=== PATIENT | female | born 1950 | race Caucasian/White ===

== ENCOUNTER 2018-10-10 15:16 | Emergency (ER) | payer OTHER ==
[~2018-10-10] VITALS: Ht 162.6 cm; Wt 73.9 kg
[~2018-10-10 15:16] MED LIST: ASPIR 8181 MG; SULFAMETHOXAZOL1 TA6 PO
== END 2018-10-10 18:39 | disposition home or self-care (01) ==
LOC: ER 15:16
DX: J11.1 Influenza due to unidentified influenza virus with other respiratory manifestations (principal)

== ENCOUNTER 2021-03-10 09:04 | Inpatient (IN) | payer OTHER ==
[~2021-03-10] VITALS: Ht 162.6 cm; Wt 78.5 kg
[2021-03-12] MEDS ORDERED: CYCLOBENZAPRINE5 MG (14:34)
[2021-03-15] MEDS ORDERED: AZELASTINE137 MCG/0. (09:37)
[2021-03-26] MEDS ORDERED: CIPRO500 MG PO (13:30)
[2021-03-26] MEDS ORDERED: FLAGYL500MG PO (13:32)
== END 2021-03-26 16:25 | disposition home or self-care (01) | DRG 392 ==
LOC: ER 09:04 → SURH 20:11 → ER 03-11 02:11 → SURH 03-26 16:25
PROVIDERS: ADMIT Surgery; ATTEND Surgery
PROC: 02HV33Z Insertion of Infusion Device into Superior Vena Cava, Percutaneous Approach (ICD-10-PCS; 2021-03-11)
PROC: 0W9J30Z Drainage of Pelvic Cavity with Drainage Device, Percutaneous Approach (ICD-10-PCS; principal; 2021-03-16)
DX: K57.20 Diverticulitis of large intestine with perforation and abscess without bleeding (principal); E87.6 Hypokalemia; E03.8 Other specified hypothyroidism; Z20.822 Contact with and (suspected) exposure to COVID-19

== ENCOUNTER 2021-05-12 06:31 | Day surgery (SDC) | payer OTHER ==
[~2021-05-12 06:31] MED LIST changes: +AZELASTINE137 MCG/0.; +CIPRO500 MG PO; +CYCLOBENZAPRINE5 MG; +FLAGYL500MG PO
== END 2021-05-12 12:35 | disposition home or self-care (01) ==
LOC: AMB-ENDOS 06:31
PROVIDERS: ATTEND Surgery
DX: D12.3 Benign neoplasm of transverse colon (principal); K64.8 Other hemorrhoids

== ENCOUNTER 2022-10-25 14:40 | Emergency (ER) | payer OTHER ==
[~2022-10-25] VITALS: Ht 162.6 cm; Wt 73.5 kg
== END 2022-10-25 17:09 | disposition home or self-care (01) ==
LOC: ER 14:40
DX: M79.604 Pain in right leg (principal); Z88.0 Allergy status to penicillin

== ENCOUNTER 2022-10-26 08:45 | Emergency (ER) | payer OTHER ==
[~2022-10-26] VITALS: Ht 162.6 cm; Wt 74.8 kg
== END 2022-10-26 11:15 | disposition home or self-care (01) ==
LOC: ER 08:45
DX: M79.651 Pain in right thigh (principal); Z88.0 Allergy status to penicillin

== ENCOUNTER → 2022-12-04 | Emergency (ER) | payer OTHER ==
[~2022-12-04] VITALS: Ht 162.6 cm; Wt 74.8 kg
== END | disposition left against medical advice (07) ==
LOC: ER 17:26
DX: Z53.21 Procedure and treatment not carried out due to patient leaving prior to being seen by health care provider (principal)

== ENCOUNTER 2023-06-27 14:10 | Emergency (ER) | payer OTHER ==
[~2023-06-27] VITALS: Ht 165.1 cm; Wt 77.1 kg
[2023-06-27] MEDS ORDERED: PEPCID AC20 MG PO (18:20)
[2023-06-27] MEDS ORDERED: DICLOFENAC SODI50 MG PO (18:20)
== END 2023-06-27 18:49 | disposition home or self-care (01) ==
LOC: ER 14:11
DX: S80.02XA Contusion of left knee, initial encounter (principal); X58.XXXA Exposure to other specified factors, initial encounter; Y93.89 Activity, other specified; Y92.89 Other specified places as the place of occurrence of the external cause; Y99.9 Unspecified external cause status; Z88.0 Allergy status to penicillin; Z85.89 Personal history of malignant neoplasm of other organs and systems
CPT/HCPCS: 73560; 96372; 99284; J1100; J1885

== ENCOUNTER 2023-09-24 09:29 | Emergency (ER) | payer OTHER ==
[~2023-09-24] VITALS: Ht 162.6 cm; Wt 77.1 kg
[~2023-09-24 09:29] MED LIST changes: +DICLOFENAC SODI50 MG PO; +PEPCID AC20 MG PO
[2023-09-24] MEDS ORDERED: XYZAL2.5 MG/5 M PO (09:59)
[2023-09-24 11:03] LABS: HEMATOCRIT 39.6 % (36.0-45.00); HEMOGLOBIN 13.6 g/dL (12.0-15.00); MEAN CELL VOLUME 88.4 fL (80.00-100.00); MEAN CORPUSCULAR HEMOGLOBIN 30.4 pg (27.00-32.0); MEAN CORPUSCULAR HGB CONC 34.4 g/dl (32.0-36.0); PLATELET COUNT 289 K/uL (150-450); RED BLOOD COUNT 4.48 M/uL (4.00-6.00); RED CELL DISTRIBUTION WIDTH 12.8 % (11.5-14.5)
== END 2023-09-24 12:16 | disposition home or self-care (01) ==
LOC: ER 09:30
DX: J06.9 Acute upper respiratory infection, unspecified (principal); Z88.0 Allergy status to penicillin; I10 Essential (primary) hypertension; Z20.822 Contact with and (suspected) exposure to COVID-19; Z88.6 Allergy status to analgesic agent

== ENCOUNTER 2024-09-01 06:57 | Emergency (ER) | payer OTHER ==
[~2024-09-01] VITALS: Ht 152.4 cm; Wt 81.2 kg
[~2024-09-01 06:57] MED LIST changes: +XYZAL2.5 MG/5 M PO
[2024-09-01] MEDS ORDERED: ASPIRIN 325 MG TABLET PO ONE (08:15)
[2024-09-01 08:56] LABS: HEMATOCRIT 42.8 % (36.0-45.00); HEMOGLOBIN 14.9 g/dL (12.0-15.00); MEAN CELL VOLUME 86.7 fL (80.00-100.00); MEAN CORPUSCULAR HEMOGLOBIN 30.2 pg (27.00-32.0); MEAN CORPUSCULAR HGB CONC 34.8 g/dl (32.0-36.0); PLATELET COUNT 274 K/uL (150-450); RED BLOOD COUNT 4.93 M/uL (4.00-6.00); RED CELL DISTRIBUTION WIDTH 13.2 % (11.5-14.5)
[2024-09-01 09:26] LABS: PH,URINE 5.5 (5.0-8.0); URINE APPEARANCE Clear; URINE BILIRRUBIN Negative (NEGATIVE); URINE BLOOD NHT; URINE COLOR Yellow; URINE GLUCOSE Negative (NEGATIVE); URINE KETONE Negative (NEGATIVE); URINE LEUKOCYTE Negative; URINE NITRATE Negative; URINE PROTEIN Negative (NEGATIVE); URINE UROBILINOGEN 0.2 E.U./dl
[2024-09-01 09:27] LABS: URINE RBC 6.6 uL (0.0-20.8); URINE WBC 16.1 uL (0.0-23.2)
[2024-09-01 09:36] LABS: ALBUMIN 3.9 gm/dL (3.4-5.0); BILIRUBIN TOTAL 0.9 mg/dL (0.3-1.2); CALCIUM 9.8 mg/dL (8.5-10.1); CREATININE SERUM 0.6 mg/dL (0.55-1.02); GFR 98.55; GLOBULINA 3.4 G/DL (2.4-3.5); POTASSIUM 4.27 mEq/L (3.5-5.1); TOTAL PROTEIN 7.3 gm/dL (6.4-8.2)
== END 2024-09-01 14:30 | disposition home or self-care (01) ==
LOC: ER 06:59
PROVIDERS: Emergency Medicine
DX: R07.89 Other chest pain (principal); Z88.0 Allergy status to penicillin; I10 Essential (primary) hypertension; Z85.42 Personal history of malignant neoplasm of other parts of uterus; K57.30 Diverticulosis of large intestine without perforation or abscess without bleeding

== ENCOUNTER 2025-02-04 16:16 | Inpatient (IN) | payer OTHER ==
[~2025-02-04] VITALS: Ht 162.6 cm; Wt 77.1 kg
--- NOTE | 2025-02-04 16:25 | NUR ---
PTE ALERTA Y ORIENTADA X3, REFIERE DOLOR EN FLANCO DERECHO DESDE ESTA MANANA. REFIERE PADECER DE DIVERTICULITIS Y SER PTE DEL DR.LUIS PINTO.
[2025-02-04] MEDS ORDERED: 0.9 % SODIUM CHLORIDE 1,000 ML IV STA (17:57)
[2025-02-04] MEDS ORDERED: MORPHINE SULFATE 4 MG/ML VIAL IV STA (17:59)
[2025-02-04] MEDS ORDERED: FAMOTIDINE/PF 20 MG IV STA (18:01)
[2025-02-04] MEDS ORDERED: CIPROFLOXACIN IN 5 % DEXTROSE 400 MG/200 ML PIGGYBAG IV STA (18:02)
[2025-02-04] MEDS ORDERED: METRONIDAZOLE/SODIUM CHLORIDE 500 MG/100 ML PIGGYBACK IV STA (18:03)
[2025-02-04] MEDS ORDERED: FAMOTIDINE/PF 20 MG/2 ML VIAL ONE (18:16)
[2025-02-04] MEDS ORDERED: METRONIDAZOLE/SODIUM CHLORIDE 500 MG/100 ML PIGGYBACK IV ONE (18:16)
[2025-02-04] MEDS ORDERED: CIPROFLOXACIN IN 5 % DEXTROSE 400 MG/200 ML PIGGYBAG IV ONE (18:16)
[2025-02-04 18:39] LABS: BASO % 0.6 % (0.1-1.2); EOS # 0.06 (0.04-0.54); EOS % 0.8 % (0.7-7.0); LYMPH # 1.57 (1.18-3.74); LYMPH % 21.9 % (19.3-53.1); MEAN PLATELET VOLUME 11.10 fl (9.4-12.4); MONO # 0.49 (0.24-0.82); MONO % 6.8 % (4.7-12.5); NEUT # 5.00 (1.56-6.13); NEUT % 69.8 % (34.0-71.1); RED CELL DISTRIBUTION WIDTH 12.5 % (11.6-14.4)
--- NOTE | 2025-02-04 18:53 | NUR ---
SE ORIENTA PTE SOBRE TX MEDICO EL CUAL REFIERE ENTENDER.SE LE EXTRAEN MUESTRAS BAJO MEDIDAS ASEPTICAS,SE CANALIZA Y SE ADMINISTRAN MEDICAMENTOS.SE ORIENTA SOBRE CT PENDIENTE Y REHUSA EL MISMO YA REFIERE NO SE SIENTE BIENN LUEGO DEL IV.PTE POCO COOPERADORA.
[2025-02-04 19:00] LABS: INR 1.02
[2025-02-04 19:06] LABS: ALT/SGPT 25.0 U/L (12-78); AST/SGOT 16.0 U/L (15-37); BILIRUBIN TOTAL 1.2 mg/dL (0.3-1.2); BUN CREA RATIO 30.0 (7.0-25.0); CREATININE SERUM 0.67 mg/dL (0.55-1.02); GFR 86.52; GLOBULINA 3.7 G/DL (2.4-3.5); GLUCOSE FASTING 106.0 mg/dL (65-100); OSMOLALITY SERUM 288.0 MOSM/KG (275-295)
[2025-02-04 19:11] LABS: URINE APPEARANCE Clear; URINE BILIRRUBIN Negative (NEGATIVE); URINE BLOOD Negative; URINE COLOR Yellow; URINE GLUCOSE Negative (NEGATIVE); URINE KETONE Trace (NEGATIVE); URINE LEUKOCYTE Trace; URINE NITRATE Negative; URINE PROTEIN Negative (NEGATIVE); URINE UROBILINOGEN 0.2 E.U./dl
[2025-02-04 19:15] LABS: URINE BACTERIA 235.2 uL (0.0-1933); URINE EPITHELIAL CELLS 14.1 uL (0.0-38.8); URINE RBC 12.6 uL (0.0-20.8); URINE WBC 12.4 uL (0.0-23.2)
[2025-02-04 19:18] LABS: URINE CAST 0.00 uL (0.0-1.40)
[2025-02-04] MEDS ORDERED: FAMOTIDINE/PF 20 MG/2 ML VIAL IV PUSH ONE (19:30)
[2025-02-04] MEDS ORDERED: 0.9 % SODIUM CHLORIDE 1,000 ML IV SCH (23:30)
[2025-02-04] MEDS ORDERED: ONDANSETRON HCL 2 MG/ML VIAL ONE (23:31)
[2025-02-04] MEDS ORDERED: ONDANSETRON HCL 2 MG/ML VIAL IV STA (23:37)
[2025-02-04] MEDS ORDERED: ONDANSETRON HCL 4 MG in 0.9 % SODIUM CHLORIDE 50 ML IV PRN (23:45)
[2025-02-04] MEDS ORDERED: KETOROLAC TROMETHAMINE 15 MG VIAL IU ONE (23:45)
[2025-02-04] MEDS ORDERED: MORPHINE SULFATE 4 MG/ML CARTRIDGE IV PRN (23:45)
[2025-02-05 03:27] LABS: INR 1.08
[2025-02-05 08:24] LABS: BASO % 0.5 % (0.1-1.2); EOS # 0.00 (0.04-0.54); EOS % 0.0 % (0.7-7.0); LYMPH # 0.82 (1.18-3.74); LYMPH % 10.0 % (19.3-53.1); MEAN PLATELET VOLUME 10.90 fl (9.4-12.4); MONO # 0.49 (0.24-0.82); MONO % 6.0 % (4.7-12.5); NEUT # 6.83 (1.56-6.13); NEUT % 83.1 % (34.0-71.1); RED CELL DISTRIBUTION WIDTH 12.7 % (11.6-14.4)
[2025-02-05 08:41] VITALS: BP 160/84; O2SAT 98
[2025-02-05 08:53] LABS: BUN CREA RATIO 27.0 (7.0-25.0); CREATININE SERUM 0.55 mg/dL (0.55-1.02); GFR 108.65; GLUCOSE FASTING 127.0 mg/dL (65-100); OSMOLALITY SERUM 287.0 MOSM/KG (275-295)
[2025-02-05] MEDS ORDERED: CIPROFLOXACIN IN 5 % DEXTROSE 200 ML IV SCH (09:00)
[2025-02-05] MEDS ORDERED: FAMOTIDINE/PF 20 MG in 0.9 % SODIUM CHLORIDE 8 ML IV PUSH SCH (09:00)
[2025-02-05] MEDS ORDERED: ONDANSETRON HCL 2 MG/ML VIAL ONE (11:03)
[2025-02-05 14:00] VITALS: O2SAT 95
[2025-02-05 16:21] VITALS: BP 169/82; O2SAT 94
[2025-02-05 16:56] VITALS: O2SAT 90
[2025-02-05 20:25] VITALS: O2SAT 90
[2025-02-06] VITALS (9 sets, daily range): BP systolic 142–182; BP diastolic 76–101; O2SAT 90–97
[2025-02-06] MEDS ORDERED: PANTOPRAZOLE SODIUM 40 MG in 0.9 % SODIUM CHLORIDE 8 ML IV PUSH SCH (09:00)
[2025-02-06] MEDS ORDERED: ENOXAPARIN SODIUM 40 MG/0.4 ML SYRINGE SUBCUTANEO SCH (09:00)
[2025-02-06] MEDS ORDERED: FAMOTIDINE/PF 20 MG in 0.9 % SODIUM CHLORIDE 8 ML IV PUSH SCH (17:00)
[2025-02-06] MEDS ORDERED: POTASSIUM CHLORIDE/D5-0.9%NACL 1,000 ML IV SCH (17:00)
[2025-02-06] MEDS ORDERED: hydrALAZINE HCL 20 MG VIAL IV PRN (19:30)
[2025-02-07] VITALS: O2SAT 91
[2025-02-07 00:49] VITALS: BP 132/79; O2SAT 97
[2025-02-07 04:00] VITALS: O2SAT 93
[2025-02-07 08:24] VITALS: BP 141/85; O2SAT 96
[2025-02-07] MEDS ORDERED: MORPHINE SULFATE 4 MG/ML CARTRIDGE IV PRN (08:45)
[2025-02-07 10:30] VITALS: O2SAT 95
[2025-02-07 11:25] LABS: BASO % 0.2 % (0.1-1.2); EOS # 0.00 (0.04-0.54); EOS % 0.0 % (0.7-7.0); LYMPH # 0.65 (1.18-3.74); LYMPH % 4.1 % (19.3-53.1); MEAN PLATELET VOLUME 11.20 fl (9.4-12.4); MONO # 1.76 (0.24-0.82); MONO % 11.1 % (4.7-12.5); NEUT # 13.31 (1.56-6.13); NEUT % 84.1 % (34.0-71.1); RED CELL DISTRIBUTION WIDTH 13.2 % (11.6-14.4)
[2025-02-07] MEDS ORDERED: LIDOCAINE HCL 1%/EPINEPHRINE 20ML VIAL IJ ONE (12:00)
[2025-02-07] MEDS ORDERED: BUPIVACAINE HCL/MPF 0.5% 30ML VIAL ONE (12:00)
[2025-02-07 12:08] LABS: ALT/SGPT 16.0 U/L (12-78); AST/SGOT 11.0 U/L (15-37); BILIRUBIN TOTAL 1.85 mg/dL (0.3-1.2); BUN CREA RATIO 38.0 (7.0-25.0); CREATININE SERUM 0.64 mg/dL (0.55-1.02); GFR 91.22; GLOBULINA 2.9 G/DL (2.4-3.5); GLUCOSE FASTING 149.0 mg/dL (65-100); OSMOLALITY SERUM 292.0 MOSM/KG (275-295)
[2025-02-07] MEDS ORDERED: SUGAMMADEX SODIUM 200 MG/2 ML VIAL IV ONE (14:35)
[2025-02-07] MEDS ORDERED: MORPHINE SULFATE 4 MG/ML VIAL IV ONE ×2 (16:05→16:35)
[2025-02-07] MEDS ORDERED: FAMOTIDINE/PF 20 MG/2 ML VIAL ONE (17:26)
[2025-02-07] MEDS ORDERED: METRONIDAZOLE/SODIUM CHLORIDE 500 MG/100 ML PIGGYBACK IV ONE (17:26)
[2025-02-07] MEDS ORDERED: hydrALAZINE HCL 20 MG VIAL ONE (17:32)
[2025-02-07] MEDS ORDERED: MEROPENEM 500 MG/VIAL VIAL IV SCH (18:00)
[2025-02-07 19:33] VITALS: BP 124/74; O2SAT 96
[2025-02-07] MEDS ORDERED: METOCLOPRAMIDE HCL 5 MG/ML VIAL IV SCH (21:00)
[2025-02-08] VITALS (8 sets, daily range): BP systolic 139–176; BP diastolic 81–84; O2SAT 90–94
[2025-02-08] MEDS ORDERED: POTASSIUM CHLORIDE/D5-0.45NACL 1,000 ML IV SCH (16:00)
[2025-02-09] VITALS (9 sets, daily range): BP systolic 139–150; BP diastolic 73–84; O2SAT 89–97
[2025-02-09 10:31] LABS: BASO % 0.5 % (0.1-1.2); EOS # 0.07 (0.04-0.54); EOS % 1.1 % (0.7-7.0); LYMPH # 0.61 (1.18-3.74); LYMPH % 9.4 % (19.3-53.1); MEAN PLATELET VOLUME 11.50 fl (9.4-12.4); MONO # 1.07 (0.24-0.82); NEUT # 4.69 (1.56-6.13); NEUT % 72.0 % (34.0-71.1); RED CELL DISTRIBUTION WIDTH 13.3 % (11.6-14.4)
[2025-02-09 10:33] LABS: MONO % 16.4 % (4.7-12.5)
[2025-02-09 10:58] LABS: BUN CREA RATIO 54.0 (7.0-25.0); CREATININE SERUM 0.41 mg/dL (0.55-1.02); GFR 152.49; GLUCOSE FASTING 133.0 mg/dL (65-100); OSMOLALITY SERUM 294.0 MOSM/KG (275-295)
[2025-02-09] MEDS ORDERED: MORPHINE SULFATE 4 MG/ML CARTRIDGE IV PRN (13:45)
[2025-02-09 14:28] LABS: BUN CREA RATIO 48.0 (7.0-25.0); CHOL HDL RATIO 2.3 (0-5.0); CREATININE SERUM 0.4 mg/dL (0.55-1.02); GFR 156.9; GLUCOSE FASTING 132.0 mg/dL (65-100); HDL 43.0 mg/dl (40-60); LDL 39.0 mg/dl (0-130); OSMOLALITY SERUM 295.0 MOSM/KG (275-295); VLDL 18.0 (0-39)
[2025-02-09] MEDS ORDERED: AA 4.25%/CAL/LYTES/DEXT 5% 1,000 ML PERIFERAL SCH (17:00)
[2025-02-10] VITALS (8 sets, daily range): BP systolic 144–160; BP diastolic 76–77; O2SAT 90–97
[2025-02-10 08:42] LABS: BASO % 0.5 % (0.1-1.2); EOS # 0.22 (0.04-0.54); EOS % 3.5 % (0.7-7.0); LYMPH # 1.06 (1.18-3.74); LYMPH % 16.9 % (19.3-53.1); MEAN PLATELET VOLUME 10.90 fl (9.4-12.4); MONO # 0.84 (0.24-0.82); NEUT # 4.09 (1.56-6.13); NEUT % 64.9 % (34.0-71.1); RED CELL DISTRIBUTION WIDTH 13.1 % (11.6-14.4)
[2025-02-10 09:11] LABS: INR 1.05
[2025-02-10 09:14] LABS: MONO % 13.4 % (4.7-12.5)
[2025-02-10 09:17] LABS: ALT/SGPT 16.0 U/L (12-78); AST/SGOT 13.0 U/L (15-37); BILIRUBIN TOTAL 0.76 mg/dL (0.3-1.2); BILIRUBIN,CONJUGATED 0.2 mg/dL (0.0-0.2); BUN CREA RATIO 44.0 (7.0-25.0); CHOL HDL RATIO 2.4 (0-5.0); CREATININE SERUM 0.39 mg/dL (0.55-1.02); GFR 161.55; GLOBULINA 2.6 G/DL (2.4-3.5); GLUCOSE FASTING 141.0 mg/dL (65-100); HDL 41.0 mg/dl (40-60); LDL 40.0 mg/dl (0-130); OSMOLALITY SERUM 291.0 MOSM/KG (275-295); VLDL 15.0 (0-39)
[2025-02-10] MEDS ORDERED: SUGAMMADEX SODIUM 200 MG/2 ML VIAL IV ONE (14:00)
[2025-02-11 01:34] VITALS: O2SAT 90
[2025-02-11 01:38] VITALS: BP 160/84; O2SAT 96
[2025-02-11 05:42] VITALS: O2SAT 90
[2025-02-11 08:27] VITALS: BP 166/89; O2SAT 92
[2025-02-11 16:51] VITALS: BP 164/84; O2SAT 91
[2025-02-11] MEDS ORDERED: MORPHINE SULFATE 4 MG/ML CARTRIDGE IV PRN (21:15)
[2025-02-12 01:50] VITALS: BP 153/66; O2SAT 91
[2025-02-12] MEDS ORDERED: DIATRIZOATE MEGLUMINE, SODIUM 30 ML BOTTLE PO NR (08:15)
[2025-02-12 08:51] VITALS: BP 134/64; O2SAT 99
[2025-02-12 10:31] LABS: ALT/SGPT 31.0 U/L (12-78); AST/SGOT 44.0 U/L (15-37); BILIRUBIN TOTAL 0.94 mg/dL (0.3-1.2); BUN CREA RATIO 33.0 (7.0-25.0); CREATININE SERUM 0.46 mg/dL (0.55-1.02); GFR 133.53; GLOBULINA 2.7 G/DL (2.4-3.5); GLUCOSE FASTING 114.0 mg/dL (65-100); OSMOLALITY SERUM 283.0 MOSM/KG (275-295)
[2025-02-12 11:37] LABS: BASO % 0.6 % (0.1-1.2); EOS # 0.16 (0.04-0.54); EOS % 2.4 % (0.7-7.0); LYMPH # 1.05 (1.18-3.74); LYMPH % 16.0 % (19.3-53.1); MEAN PLATELET VOLUME 10.90 fl (9.4-12.4); MONO # 0.76 (0.24-0.82); MONO % 11.6 % (4.7-12.5); NEUT # 4.43 (1.56-6.13); NEUT % 67.4 % (34.0-71.1); RED CELL DISTRIBUTION WIDTH 12.5 % (11.6-14.4)
[2025-02-12] MEDS ORDERED: POTASSIUM CHLORIDE-0.45% NACL 1,000 ML IV ONE (16:00)
[2025-02-12] MEDS ORDERED: POTASSIUM CHLORIDE-0.45% NACL 1,000 ML IV NR (16:15)
[2025-02-12 17:28] VITALS: BP 160/85; O2SAT 96
[2025-02-12] MEDS ORDERED: LACTOBACILLUS ACIDOPHILUS 1 CAP CAP PO SCH (22:31)
[2025-02-13 02:34] VITALS: BP 158/79; O2SAT 93
[2025-02-13 08:02] VITALS: BP 163/81
[2025-02-13 11:02] LABS: BUN CREA RATIO 23.0 (7.0-25.0); CREATININE SERUM 0.53 mg/dL (0.55-1.02); GFR 113.39; GLUCOSE FASTING 171.0 mg/dL (65-100); OSMOLALITY SERUM 285.0 MOSM/KG (275-295)
[2025-02-13] MEDS ORDERED: POTASSIUM CHLORIDE/D5-0.45NACL 1,000 ML IV SCH (16:59)
[2025-02-13 17:29] VITALS: BP 152/83; O2SAT 96
[2025-02-14 02:15] VITALS: BP 133/72; O2SAT 90
[2025-02-14 09:20] VITALS: BP 134/72; O2SAT 93
== END 2025-02-14 10:11 | disposition home or self-care (01) | DRG 336 ==
LOC: ER 16:16 → MEDJ 23:33 → MEDI 23:33 → SEC-K 02-05 07:10 → MEDJ 02-05 13:45 → MEDI 02-07 17:53
PROVIDERS: General Practice; Surgery; ADMIT Internal Medicine; ATTEND Internal Medicine
PROC: BW21YZZ Computerized Tomography (CT Scan) of Abdomen and Pelvis using Other Contrast (ICD-10-PCS; 2025-02-04)
PROC: 0DTJ0ZZ Resection of Appendix, Open Approach (ICD-10-PCS; 2025-02-07)
PROC: 0DJD0ZZ Inspection of Lower Intestinal Tract, Open Approach (ICD-10-PCS; 2025-02-07)
PROC: 0DN80ZZ Release Small Intestine, Open Approach (ICD-10-PCS; principal; 2025-02-07 13:30)
DX: K56.2 Volvulus (principal); K91.89 Other postprocedural complications and disorders of digestive system; I10 Essential (primary) hypertension; K46.9 Unspecified abdominal hernia without obstruction or gangrene; K56.7 Ileus, unspecified; N73.6 Female pelvic peritoneal adhesions (postinfective); N99.4 Postprocedural pelvic peritoneal adhesions